=== PATIENT | female | born 1945 | race Caucasian/White ===

== ENCOUNTER 2018-10-01 08:49 | Emergency (ER) | payer MEDICARE ==
[~2018-10-01] VITALS: Ht 165.1 cm; Wt 69.1 kg
--- NOTE | 2018-10-01 09:18 | NUR ---
Assumed care of patient. Two weeks ago, patient report cutting box and having sharp pain in right lateral thigh. Patient report pain radiating to foot with tinglign in foot. Increased pain with ambulation. No relief with anti-inflammatories and [place] at home. at bedside. Will continue to monitor.
[2018-10-01] MEDS ORDERED: METHOCARBAMOL 750 MG TABLET PO ONE (09:30)
[2018-10-01] MEDS ORDERED: ONDANSETRON ODT 4 MG PO ONE (09:30)
[2018-10-01] MEDS ORDERED: KETOROLAC 30 MG/1 ML IM ONE (09:30)
[2018-10-01] MEDS ORDERED: METHOCARBAMOL 750 MG TABLET ONE (09:41)
[2018-10-01] MEDS ORDERED: ONDANSETRON ODT 4 MG ONE (09:42)
[2018-10-01] MEDS ORDERED: KETOROLAC 30 MG/1 ML ONE (09:42)
--- NOTE | 2018-10-01 09:55 | NUR ---
Medicated per [facility]. Provided with water and crackers. No other needs.
[2018-10-01 10:25] VITALS: BP 129/71
--- NOTE | 2018-10-01 11:05 | NUR ---
Patient/Caregiver given discharge instructions and they have confirmed that they understand the instructions. Patient ambulatory with steady gait.
== END 2018-10-01 11:06 | disposition home or self-care (01) ==
LOC: ED 11:00
DX: M54.41 Lumbago with sciatica, right side (principal); J45.909 Unspecified asthma, uncomplicated
CPT/HCPCS: 96372; 99283; J1885; Q0162

== ENCOUNTER → 2019-01-25 | Outpatient (CLI) | payer MEDICARE | END | disposition home or self-care (01) | LOC: CFH 10:39 | PROVIDERS: ATTEND Internal Medicine | DX: J84.10 Pulmonary fibrosis, unspecified (principal) | CPT/HCPCS: 71250 ==

== ENCOUNTER 2019-09-16 04:42 | Emergency (ER) | payer MEDICARE ==
[~2019-09-16] VITALS: Ht 162.6 cm; Wt 68.1 kg
--- NOTE | 2019-09-16 04:59 | NUR ---
THIS IS A 74Y F THAT COMES IN W/ C/O COUGH WHEEZING AND ASTHMA SYMPTOMS. PT STS SHE WOKE UP AROUND 0400 JUST FEELING LIKE SHE COULDN'T BREATHE, PT REPORTS USING NEBULIZER AT HOME WITH NO IMPROVEMENT. PT CONNECTED TO ALL MONITORS VSS, CALL LIGHT IN REACH, AT BEDSIDE
--- NOTE | 2019-09-16 05:09 | NUR ---
PA AT BEDSIDE TO ASSESS PT
[2019-09-16] MEDS ORDERED: ALBUTEROL/IPRATROPIUM 2.5MG/0.5MG, 3 ML ONE ×2 (05:20→05:48)
[2019-09-16] MEDS ORDERED: ALBUTEROL/IPRATROPIUM 2.5MG/0.5MG, 3 ML NPPB ONE (05:30)
--- NOTE | 2019-09-16 05:38 | NUR ---
RESPIRATORY AT BEDSIDE FOR BREATHING TX
--- NOTE | 2019-09-16 06:14 | NUR ---
PT UP TO RESTROOM AT THIS TIME
[2019-09-16 06:20] VITALS: BP 107/59
== END 2019-09-16 06:41 | disposition home or self-care (01) ==
LOC: ED 05:24
DX: J45.41 Moderate persistent asthma with (acute) exacerbation (principal); J44.1 Chronic obstructive pulmonary disease with (acute) exacerbation
CPT/HCPCS: 71046; 93005; 94640; 99284; J7512; J7620; 99283

== ENCOUNTER → 2019-09-20 | Outpatient (CLI) | payer MEDICARE | END | disposition home or self-care (01) | LOC: CFH 10:17 | PROVIDERS: ATTEND Physician Assistant ==

== ENCOUNTER 2019-10-02 10:29 | Outpatient (CLI) | payer MEDICARE ==
[~2019-10-02] VITALS: Ht 165.1 cm; Wt 66.8 kg
[2019-10-02] MEDS ORDERED: MONT10TA9 PO (12:18)
[2019-10-02] MEDS ORDERED: ALBU18HF INH (12:18)
[2019-10-02] MEDS ORDERED: BUDE10.2 INH (12:18)
[2019-10-02] MEDS ORDERED: UMEC62.5 INH (12:18)
[2019-10-02] MEDS ORDERED: IPRA3AMP30 NEB (12:18)
[2019-10-02] MEDS ORDERED: MELO15TA24 PO (12:19)
[2019-10-02] MEDS ORDERED: CRIS60OI TP (12:19)
[2019-10-02] MEDS ORDERED: VALA500T PO (12:19)
[2019-10-02] MEDS ORDERED: [UNRECOGNIZED DRUG - CODE] TP (12:19)
[2019-10-02] MEDS ORDERED: PRED50TA PO (12:19)
[2019-10-02] MEDS ORDERED: PANT20TA3 PO (12:19)
[2019-10-02] MEDS ORDERED: losartan potassium PO (12:19)
[2019-10-02] MEDS ORDERED: [UNRECOGNIZED DRUG - OTHER] PO (12:19)
[2019-10-02] MEDS ORDERED: flonase NAS (12:19)
[2019-10-02] MEDS ORDERED: budesonide NAS (12:19)
[2019-10-02] MEDS ORDERED: centrum silver PO (12:19)
[2019-10-02] MEDS ORDERED: [UNRECOGNIZED DRUG - OTHER] TP (12:19)
[2019-10-02] MEDS ORDERED: Vitamin D3 PO (12:19)
[2019-10-02] MEDS ORDERED: SERT50TA28 PO (12:19)
[2019-10-02] MEDS ORDERED: NAPR220C2 PO (12:19)
[2019-10-02] MEDS ORDERED: DICY20TA3 PO (12:19)
[2019-10-02 12:21] VITALS: BP 110/68
== END 2019-10-02 23:59 | disposition home or self-care (01) ==
LOC: STAR 10:29
PROVIDERS: ATTEND Internal Medicine
DX: Z02.9 Encounter for administrative examinations, unspecified (principal)

== ENCOUNTER 2019-10-06 07:13 | Day surgery (SDC) | payer MEDICARE ==
[~2019-10-06] VITALS: Ht 165.1 cm; Wt 68.0 kg
[~2019-10-06 07:13] MED LIST: ALBU18HF INH; BUDE10.2 INH; CRIS60OI TP; DICY20TA3 PO; IPRA3AMP30 NEB; MELO15TA24 PO; MONT10TA11 PO; NAPR220C2 PO; PANT20TA3 PO; PRED50TA PO; SERT50TA28 PO; UMEC62.5 INH; VALA500T8 PO; Vitamin D3 PO; [UNRECOGNIZED DRUG - CODE] TP; [UNRECOGNIZED DRUG - OTHER] PO; [UNRECOGNIZED DRUG - OTHER] TP; budesonide NAS; centrum silver PO; flonase NAS; losartan potassium PO
[2019-10-06] MEDS ORDERED: SODIUM CHLORIDE 0.9% 1,000 ML IV SCH (07:48)
[2019-10-06 07:50] VITALS: BP 162/79
[2019-10-06] MEDS ORDERED: LOSA25TA25 PO (07:50)
[2019-10-06] MEDS ORDERED: DIPHENHYDRAMINE 50 MG/ML, 1ML ONE (08:06)
[2019-10-06] MEDS ORDERED: GLYCOPYRROLATE 0.4 MG/2 ML, 2ML ONE (08:07)
[2019-10-06] MEDS ORDERED: ALBUTEROL SULFATE 2.5 MG/3 ML ONE ×2 (08:33→12:56)
[2019-10-06] MEDS ORDERED: FENTANYL PF 100 MCG/2ML ONE (09:10)
[2019-10-06] MEDS ORDERED: MIDAZOLAM 1 MG/ML, 5ML ONE (09:11)
[2019-10-06] MEDS ORDERED: LIDOCAINE 4% TOPICAL SOLUTION 50 ML ONE (15:18)
== END 2019-10-06 13:15 | disposition home or self-care (01) ==
LOC: OUT 07:13
PROVIDERS: ATTEND Internal Medicine
DX: J45.50 Severe persistent asthma, uncomplicated (principal); I10 Essential (primary) hypertension; K21.9 Gastro-esophageal reflux disease without esophagitis; D64.9 Anemia, unspecified; F32.9 Major depressive disorder, single episode, unspecified; Z87.39 Personal history of other diseases of the musculoskeletal system and connective tissue; Z72.89 Other problems related to lifestyle
CPT/HCPCS: 31660; 99152; 99153; C1886; J1200; J2250; J3010; J7030

== ENCOUNTER 2019-10-27 09:31 | Day surgery (SDC) | payer MEDICARE ==
[~2019-10-27] VITALS: Ht 165.1 cm; Wt 69.5 kg
[~2019-10-27 09:31] MED LIST changes: +LIDOCAINE 2%, 20ML ONE; +LOSA25TA25 PO
[2019-10-27 10:09] VITALS: BP 123/74
[2019-10-27] MEDS ORDERED: SODIUM CHLORIDE 0.9% 1,000 ML IV SCH (10:30)
[2019-10-27] MEDS ORDERED: FENTANYL PF 100 MCG/2ML ONE ×2 (11:03)
[2019-10-27] MEDS ORDERED: DIPHENHYDRAMINE 50 MG/ML, 1ML ONE (11:03)
[2019-10-27] MEDS ORDERED: GLYCOPYRROLATE 0.4 MG/2 ML, 2ML ONE (11:03)
[2019-10-27] MEDS ORDERED: MIDAZOLAM 1 MG/ML, 5ML ONE (11:03)
[2019-10-27] MEDS ORDERED: ALBUTEROL SULFATE 2.5 MG/3 ML ONE ×2 (11:25→14:12)
== END 2019-10-27 15:00 | disposition home or self-care (01) ==
LOC: OUT 09:31
PROVIDERS: ATTEND Internal Medicine
DX: J45.50 Severe persistent asthma, uncomplicated (principal); I10 Essential (primary) hypertension; J30.9 Allergic rhinitis, unspecified; Z79.899 Other long term (current) drug therapy
CPT/HCPCS: 31660; 94640; 99152; 99153; C1886; J1200; J2250; J3010; J7030

== ENCOUNTER 2019-12-01 07:12 | Day surgery (SDC) | payer MEDICARE ==
[~2019-12-01] VITALS: Ht 165.1 cm; Wt 69.4 kg
[~2019-12-01 07:12] MED LIST changes: -LIDOCAINE 2%, 20ML ONE
[2019-12-01 07:47] VITALS: BP 133/84
[2019-12-01] MEDS ORDERED: FENTANYL PF 100 MCG/2ML ONE ×2 (08:44)
[2019-12-01] MEDS ORDERED: MIDAZOLAM 1 MG/ML, 5ML ONE (08:44)
[2019-12-01] MEDS: ALBUTEROL SULFATE 2.5 MG/3 ML NPPB PRN ×4 (08:45→12:40)
[2019-12-01] MEDS ORDERED: GLYCOPYRROLATE 0.4 MG/2 ML, 2ML ONE (08:46)
[2019-12-01] MEDS ORDERED: DIPHENHYDRAMINE 50 MG/ML, 1ML ONE (08:46)
[2019-12-01] MEDS ORDERED: LIDOCAINE 4% TOPICAL SOLUTION 50 ML ONE (14:33)
== END 2019-12-01 13:40 | disposition home or self-care (01) ==
LOC: OUT 07:12
PROVIDERS: ATTEND Internal Medicine
DX: J45.50 Severe persistent asthma, uncomplicated (principal); J30.9 Allergic rhinitis, unspecified; I10 Essential (primary) hypertension; Z79.899 Other long term (current) drug therapy
CPT/HCPCS: 31661; 94640; 99152; 99153; C1886; J1200; J2250; J3010; J7613